=== PATIENT | female | born 1985 | race Two or more races ===

== ENCOUNTER 2017-01-20 16:44 | Emergency (ER) | payer OTHER ==
[~2017-01-20] VITALS: Ht 157.5 cm; Wt 81.6 kg
[2017-01-20 17:32] VITALS: BP 141/88
== END 2017-01-20 17:48 | disposition home or self-care (01) ==
LOC: ER 16:57
DX: H00.024 Hordeolum internum left upper eyelid (principal); H10.31 Unspecified acute conjunctivitis, right eye